=== PATIENT | male | born 1965 | race African-American/Black ===

== ENCOUNTER 2016-12-08 08:46 | Inpatient (IN) ==
[2016-12-08 09:09] LABS: Basophils % 0.9 % (0.0-0.8); Hematocrit 42.5 VOL% (42.0-52.0); Hemoglobin 14.3 GM/DL (14.0-18.0); Immature Granulocytes % 1.8 %; Immature Granulocytes Absolute 0.06 #; Lymphocytes # 1.3 10*3/uL (1.4-4.0); Lymphocytes % 36.9 % (21.2-54.2); Mean Corpuscular HGB Conc 33.6 GM/DL (32-36); Mean Corpuscular Hemoglobin 32 PG (27-34); Mean Corpuscular Volume 93.8 FL (87-102); Monocytes # 0.4 10*3/uL (0.11-0.8); Monocytes % 12.1 % (1.7-12.7); Neutrophils # 1.6 10*3/uL (1.4-7.4); Neutrophils % 48.3 % (38.7-73.9); Platelet Count 206 T/CUMM (130-400); Red Blood Count 4.53 MC/CUMM (3.8-5.5); Red Cell Distribution Width 13.5 % (9.3-17.3); White Blood Count 3.4 T/CUMM (4-12)
--- NOTE | 2016-12-08 09:28 | CT Report ---
CT head/brain wo con Indication: Altered LOC Comparison: None Technique: Multiple axial tomographic images of the brain were obtained without the use of intravenous contrast. Findings: Midline structures are nondisplaced. There is no acute intracranial hemorrhage or evidence of hydrocephalus. Mild global volume loss present. Minimal periventricular and subcortical hypoattenuation noted which is nonspecific but consistent with chronic microvascular ischemic change. Old appearing defect within the medial wall of the right orbit. Minimal opacification of posterior left ethmoid air cell. Paranasal sinuses and mastoid air cells are otherwise essentially clear. IMPRESSION: No acute intracranial abnormality demonstrated. PROCEDURE INTERPRETED AT [facility] DEPARTMENT OF RADIOLOGY Final Report Signed by: Dr Amol Lebron
[2016-12-08 09:38] LABS: Alanine Aminotransferase 85 U/L (16-61); Albumin 4.7 G/DL (3.4-5.0); Alkaline Phosphatase 83 U/L (45-117); Aspartate Amino Transferase 250 U/L (0-37); Blood Urea Nitrogen 8 MG/DL (7-18); Calcium 9.7 MG/DL (8.5-10.1); Glucose 126 MG/DL (74-106); Potassium 2.9 MMOL/L (3.5-5.1); Sodium 136 MMOL/L (136-145); Total Protein 8.9 G/DL (6.4-8.3)
[2016-12-08] MEDS ORDERED: SODIUM CHLORIDE 0.9% 500 ML IV STA (09:52)
[2016-12-08] MEDS ORDERED: POTASSIUM CHLORIDE 20 MEQ TABLET PO STA (09:55)
[2016-12-08] MEDS ORDERED: THIAMINE INJ 100 MG, FOLIC ACID INJ 1 MG, MAGNESIUM SULF INJ 2 GM, MULTIVITAMIN INJ 10 ... IV ONE (10:00)
[2016-12-08 10:11] LABS: Magnesium 1.9 MG/DL (1.8-2.4)
[2016-12-08] MEDS ORDERED: POTASSIUM CHLORIDE 20 MEQ TABLET PO ONE (10:11)
--- NOTE | 2016-12-08 10:22 | XRay Report ---
XR chest 1V portable Indication: Altered mental status Comparison: None Technique: Frontal views of the chest Findings: Heart size appears within normal limits. No focal consolidation, pleural effusion, or pneumothorax. Osseous and surrounding soft tissue structures demonstrate no acute abnormality. IMPRESSION: No acute cardiopulmonary process demonstrated. PROCEDURE INTERPRETED AT [facility] DEPARTMENT OF RADIOLOGY Final Report Signed by: Dr Amol Lebron
--- NOTE | 2016-12-08 10:23 | Emergency Department Note ---
Dalia Riley Brittany, am scribing for, and in the presence of, Amish Johnson MD 09:40. Elizabeth Riley Charles R, MD, personally performed the services described in this documentation, ascribed by Yelena Gómez in my presence, and it is both accurate and complete . 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 Patient confused at this time, but no left side weakness noted. Mode of Arrival: Stretcher Limitations: No Limitations Source: Patient - History of Present Illness HPI Narrative: This is a 51 y/o black male,who presents to the ED with c/o AMS secondary to a syncopal episode which started minutes [employer]. Per EMS, pt was at work when he fell over. His coworkers state pt become confused and was unable to move his left arm when they found him. Pt reports the left sided weakness has now resolved. He avtar any numbness to the face.Pt states he remembers going up a flight of stairs but he does not remember the syncopal episode. He denies dyspnea or CP. He states this is the first time these Sx have happened. He denies a Hx of seizures. Pt has no other complaints/pain in the ED at this time. Pt denies a PMHx. Pt denies a surgical Hx. Pt denies a family medical Hx. Pt is a frequent drinker and takes Ultram. 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 Absent: chest pain, dyspnea on exertion Neurological: Present: weakness (Left sided weakness, per pt this has now resolved), confusion Medical,Surgical,& Family Hx - Social History Smoking Status: Never smoker Frequency of Alcohol Use: Frequently Type of Drug Use: None Exam Vital Signs: Vital Signs Temperature 97.1 F L 12/08/16 10:51 Pulse Rate 82 12/08/16 11:30 Respiratory Rate 20 12/08/16 11:30 Blood Pressure 150/105 12/08/16 11:30 O2 Sat by Pulse Oximetry 98 12/08/16 11:30 - General General appearance: alert, in no apparent distress - Head Head exam: Present: atraumatic, normocephalic, normal inspection - Eye Eye exam: Present: normal appearance, PERRL, EOMI. Absent: nystagmus, miosis, mydriasis - ENT ENT exam: Present: normal exam, normal oropharynx, mucous membranes moist - Neck Neck exam: Present: normal inspection, full ROM, trachea midline. Absent: tenderness, lymphadenopathy, thyromegaly - Chest Chest inspection: Present: normal inspection, symmetric chest wall rise. Absent : tenderness, rash, abscess - Respiratory Respiratory exam: Present: normal lung sounds bilaterally. Absent: rales, respiratory distress, rhonchi, stridor, wheezes - Cardiovascular Cardiovascular exam: Present: regular rate, normal rhythm, normal heart sounds. Absent: murmur, rubs, gallop, clicks - Abdominal Exam Abdominal exam: Present: soft, normal bowel sounds. Absent: distention, tenderness, guarding, rebound, rigidity - Rectal Exam Rectal exam: Present: deferred - Extremities Exam Extremities exam: Present: normal inspection, full ROM, normal capillary refill. Absent: tenderness, pedal edema, joint swelling, calf tenderness - Back Exam Back exam: Present: normal inspection, full ROM. Absent: tenderness, muscle spasm, rashes - Neurological Exam Neurological exam: Present: alert, oriented X3, CN II-XII intact. Absent: motor sensory deficit - Psychiatric Psychiatric exam: Present: normal affect, normal mood. Absent: agitated, anxious - Skin Skin exam: Present: warm, dry, intact, normal color. Absent: rash, cyanosis, diaphoresis, erythema, pallor, mottled Results - Labs CBC & BMP: 12/08/16 08:57 12/08/16 08:57 Lab Results: I have reviewed the patients labs Labs: Laboratory Tests 12/08/16 12/08/16 08:57 08:57 WBC 3.4 L MPV 9.0 L Baso % (Auto) 0.9 H Lymph # (Auto) 1.3 L Potassium 2.9 L Chloride 93 L Anion Gap 23.9 H Glucose 126 H Calculated Osmolality 271.0 L Total Bilirubin 1.50 H AST 250 H ALT 85 H Total Protein 8.9 H Globulin 4.2 H Serum Alcohol < 15 L - Diagnostic Findings Procedure: Chest x-ray: report reviewed by me (Nothing acute. ), CT: report reviewed by me (Head CT: Nothing acute. ) Disposition Clinical Impression: Seizure-like activity, Post alcohol withdrawal, Medicine induce seizures, History of alcohol abuse, Hypokalemia Case discussed with: patient, patient's family Disposition: Disch To Home/Self Care Condition: Stable Instructions: Non-epileptic Seizures (ED), Epilepsy (ED), Abuse of Alcohol (ED) Additional Instructions: Recommend to stop drinking. Recommend follow-up outpatient EEG study with neurology. Return to ER for acute changes. Stop taking Ultram Follow-up primary care doctor to recheck potassium next Tuesday Prescriptions: Potassium Chloride Cap/Tab [K Dur] 20 meq PO DAILY #10 tablet Referrals: Abner Burch MD [Physician] - 24-48 Hrs if not improved (Call office for appointment) Time of Disposition: 12:09 Contact your physician if you experience:: fever over 101, Difficulty voiding, Redness or swelling, Nausea/Vomiting, Shortness of breath, Bleeding, pain uncontrolled by pain medications, Other Return to the Emergency Department if:: fever over 101, Difficulty voiding, Redness or swelling, Nausea/Vomiting, Shortness of breath, Bleeding, pain uncontrolled by pain medications, Other
[2016-12-08 11:32] LABS: Apearance,Urine Slightly Hazy (Clear); Bilirubin,Urine Negative (Negative); Blood, Urine Small mg/dL (Negative); Glucose,Urine (UA) Negative (Negative); Hyaline Casts,Urine 4 /LPF (0-3); Ketones,Urine 5 mg/dL (Negative); Mucus,Urine Few /LPF (Occasional); Nitrite,Urine Negative (Negative); Protein,Urine 100 MG/DL; RBC,Urine 1 /HPF (0-4); Squamous Epithelial Cell,Urine Occasional /HPF (0-10); Urine Color Yellow (Yellow); WBC,Urine 2 /HPF (0-6)
[2016-12-08 12:11] LABS: Barbiturates Screen,Urine Negative (Negative); Benzodiazepines Screen,Urine Negative (Negative); Cannabinoid Screen,Urine Negative (Negative); Opiate Screen,Urine Negative (Negative); Phencyclidine Screen,Urine Negative (Negative)
[2016-12-08] MEDS ORDERED: levETIRAcetam 500 MG/5 ML VIAL IV ONE (12:58)
--- NOTE | 2016-12-08 13:19 | CT Report ---
CT cervical spine wo con Indication: Fall. CT CERVICAL SPINE WITHOUT CONTRAST DLP: 260 mGy*cm. One or more of the following dose reduction techniques was used: Automated exposure control, adjustment of the mA and/or kV according the patient size, or use of iterative reconstruction techniques. Comparison: None Technique: Axial noncontrast CT images of the cervical spine were obtained. Coronal and sagittal reconstructions were provided. Findings: No acute cervical spine fracture or subluxation shown. Disc heights are maintained throughout. Facet joints are properly aligned without significant hypertrophic changes. No uncovertebral joint hypertrophy. No bony encroachment on the canal. No intervertebral foraminal stenosis. No paraspinous hematoma. Impression: No acute bony injury cervical spine. PROCEDURE INTERPRETED AT [facility] DEPARTMENT OF RADIOLOGY Final Report Signed by: Juventino Lofton M.D.
--- NOTE | 2016-12-08 13:20 | CT Report ---
CT head/brain wo con Indication: Fall Comparison: CT brain dated December 08, 2016 at 9:16 AM Technique: Multiple axial tomographic images of the brain were obtained without the use of intravenous contrast. Findings: Midline structures are nondisplaced. There is no acute intracranial hemorrhage or evidence of hydrocephalus. Mild global volume loss present. Minimal periventricular and subcortical hypoattenuation noted which is nonspecific but consistent with chronic microvascular ischemic change. Old defect within the medial wall of the right orbit. Minimal opacification of a posterior left ethmoid air cell. Paranasal sinuses and mastoid air cells are otherwise clear. IMPRESSION: No acute intracranial abnormality demonstrated. PROCEDURE INTERPRETED AT [facility] DEPARTMENT OF RADIOLOGY Final Report Signed by: Dr Amol Lebron
--- NOTE | 2016-12-08 13:25 | EKG Report ---
Stationary ECG Study [facility] ER Test Date: 12/08/2016 1:24:08 PM Pat Name: KARI RUIZ Department: Room: Gender: M Wound Care Rn: JAYLON : 1965 Requested by: Amish Koenig Order Number: [id number] Radha MD: DIPTI SOLIS Intervals [place] Rate: 100 P: 56 WI: 124 QRS: 52 QRSD: 73 T: 58 QT: 378 QTc: 435 Interpretive Statements SINUS TACHYCARDIA ABNORMAL RHYTHM ECG MINOR NON-SPECIFIC ST-T ABNORMALITIES Electronically Signed On 12-09-16 10:37:13 CDT by DIPTI SOLIS [email or web address]
[2016-12-08] MEDS ORDERED: LORazepam 2 MG/1 ML VIAL IV STA (13:30)
[2016-12-08] MEDS ORDERED: LORazepam 2 MG/1 ML VIAL ONE (13:33)
--- NOTE | 2016-12-08 14:15 | Hospitalist History & Physical ---
Assessment and Plan (1) Seizure-like activity Status: Acute Assessment and plan: Tramadol discontinued. Monitored bed. Seizure precautions. Neuro checks q2h. Consult neurology. Current Visit: Yes (2) Elevated liver enzymes Status: Acute Assessment and plan: Repeat liver function tests in a.m. Current Visit: Yes (3) History of alcohol abuse Status: Acute Assessment and plan: Consult certified social workers in health care. Seizure precautions. Monitor labs. Start on Po vitamin therapy. Current Visit: Yes (4) Hypokalemia Status: Acute Assessment and plan: IV fluids ordered. Recheck labs in a.m. Current Visit: Yes History of Present Illness Chief complaint: seizure like History of present illness: Mr. Hunter is a 51 yr old black male patient that was brought into the ER today via EMS after reportedly having falling and having seizure like activity at work. Pt. states he does not remember the episode at all and denies ever having seizure before. Pt also denies any medical, surgical, or family history. Pt does however admit to alcohol intake : "at least one pint of gin a night". Pt did state that he was seen on tuesday in a local ER where he was treated for right leg pain. Pt was prescribed Tramadol and Dicoflenac which he took. The patient received a complete workup in the ER with a CT of head showing no acute intracranial activity. Pt. received replacement of K which was 2.9, a banana bag , and IVF and was subsequently discharged. Upon discharge, pt was walking across to parking lot when he fell, hit his head, and chipped his front tooth. Pt also had another episode of seizure activity with emesis. Pt was brought back into the ED and reevaluated. Second CT showed no trauma. Pt is now oriented to person and place (not time). Pt denies headache, vision loss, ringing of ears, weakness, numbness or tingling. Pt denies fever, chills, fatigue. No complaints at this time. The patient will be admitted to the service for further workup. Home Medications Medication Instructions Recorded Confirmed Type Potassium Chloride Cap/Tab [K Dur] 20 meq PO DAILY #10 tablet 12/08/16 Rx Allergies Allergy/AdvReac Type Severity Reaction Status Date / Time No Known Allergies Allergy Verified 12/08/16 08:57 Medical,Surgical,& Family Hx - Social History Smoking Status: Never smoker Frequency of Alcohol Use: Frequently (at least a half of a pint of gin daily) Type of Drug Use: None Functional capacity: independent ambulation - Constitutional Constitutional: Absent: chills, fever(s) - EENT Eyes: Absent: loss of vision Ears: Absent: decreased hearing Nose, mouth and throat: Absent: headache(s) - Cardiovascular Cardiovascular: Absent: chest pain at rest, dyspnea, edema - Respiratory Respiratory: Absent: cough - Gastrointestinal Gastrointestinal: Absent: abdominal pain, nausea - Genitourinary Genitourinary: Absent: difficulty urinating - Neurological Neurological: Present: frequent falls ((since 12/08)). Absent: numbness Exam - Constitutional Vitals: Period Temp Pulse Resp BP Sys/Aj Pulse Ox Last 24 Hr 95 22 121/92 98 General appearance: normal weight, no acute distress - Head Head exam: Present: normal inspection, normocephalic, other - Eye Eye exam: Present: EOMI Pupils: Present: SINAN - Neck Neck exam: Present: other (pt in c-collar) - Respiratory Respiratory exam: Present: clear to auscultation bilaterally - Cardiovascular Cardiovascular exam: Present: tachycardia - GI/Abdominal GI/Abdominal exam: Present: normal bowel sounds, soft. Absent: tenderness - Extremities Exam Extremities exam: Present: normal capillary refill, full ROM - Neurological Exam Neurological exam: Present: alert, normal gait, altered (pt oriented to person and place. (not time)) - Psychiatric Psychiatric exam: Present: normal affect, normal mood - Skin Skin exam: Present: normal color, warm, dry, other (pt. had skin tears to hand from fall) Results - Labs CBC & BMP: 12/08/16 08:57 12/08/16 08:57 Lab Results: I have reviewed the past 24 hour labs Quality Measures - Stroke Onset of Symptoms Date: 12/08/16 Onset of Symptoms Time: 08:15 Symptom Onset Unknown: No
--- NOTE | 2016-12-08 14:52 | EKG Report ---
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
[2016-12-08] MEDS ORDERED: SODIUM CHLOR 0.9% KCL 40 MEQ 40 MEQ/1,000 ML BAG IV SCH (15:00)
[2016-12-08] MEDS: ACETAMINOPHEN 325 MG TABLET PO PRN (16:11)
[2016-12-08] MEDS ORDERED: LORazepam 2 MG/1 ML VIAL IM PRN (17:50)
[2016-12-08] MEDS: DOCUSATE SODIUM 100 MG CAPSULE PO SCH (21:36)
[2016-12-09 06:36] LABS: Basophils % 0.1 % (0.0-0.8); Eosinophils % 0.1 % (0.00-10.9); Hematocrit 36.4 VOL% (42.0-52.0); Hemoglobin 12.4 GM/DL (14.0-18.0); Immature Granulocytes % 0.4 %; Immature Granulocytes Absolute 0.05 #; Lymphocytes # 1.5 10*3/uL (1.4-4.0); Lymphocytes % 11.2 % (21.2-54.2); Mean Corpuscular HGB Conc 34.1 GM/DL (32-36); Mean Corpuscular Hemoglobin 32 PG (27-34); Mean Corpuscular Volume 92.9 FL (87-102); Mean Platelet Volume 9.9 FL (9.6-12.0); Monocytes # 0.8 10*3/uL (0.11-0.8); Monocytes % 5.6 % (1.7-12.7); Neutrophils # 11.1 10*3/uL (1.4-7.4); Neutrophils % 82.6 % (38.7-73.9); Platelet Count 190 T/CUMM (130-400); Red Blood Count 3.92 MC/CUMM (3.8-5.5); Red Cell Distribution Width 13.6 % (9.3-17.3); White Blood Count 13.4 T/CUMM (4-12)
[2016-12-09 06:46] LABS: INR 1.1; PT Patient Result 11.4 SECS; Partial Thromboplastin Time 27.3 SECS (0-40)
[2016-12-09 07:10] LABS: Albumin 3.7 G/DL (3.4-5.0); Albumin 3.8 G/DL (3.4-5.0); Bilirubin,Direct 0.4 MG/DL (0.0-0.20); Bilirubin,Indirect 1.8 MG/DL (0.0-1.0); Bilirubin,Total 1.9 MG/DL (0.2-1.0); Bilirubin,Total 2.2 MG/DL (0.2-1.0); Calcium 8.8 MG/DL (8.5-10.1); Osmolality,Calculated 272.5 MOS/KG (273-304); Potassium 3.9 MMOL/L (3.5-5.1); Total Protein 6.7 G/DL (6.4-8.3); Total Protein 6.9 G/DL (6.4-8.3)
[2016-12-09 07:11] LABS: Risk Ratio 1.66; VLDL CHOLESTEROL 23.4 MG/DL
[2016-12-09 07:20] LABS: Folate 6.8 NG/ML (5.4-24.0)
--- NOTE | 2016-12-09 07:37 | EKG Report ---
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
[2016-12-09] MEDS: MULTIVITAMIN (CENTRUM) TABLET PO SCH (08:59)
[2016-12-09] MEDS: FOLIC ACID 1 MG TABLET PO SCH (08:59)
[2016-12-09] MEDS: DOCUSATE SODIUM 100 MG CAPSULE PO SCH ×2 (08:59→19:59)
[2016-12-09] MEDS: THIAMINE 100 MG TABLET PO SCH (08:59)
--- NOTE | 2016-12-09 09:35 | Neurology Consult Note ---
History of Present Illness History of present illness: Mr. Hunter is a 51 yr old -[place] gentleman was brought into the ER yesterday via EMS after reportedly having falling and having seizure like activity at work. Pt. states he does not remember the episode at all and denies ever having seizure before. Pt also denies any medical, surgical, or family history. Pt does however admit to alcohol intake : "at least one pint of gin a night". Pt did state that he was seen on tuesday in a local ER where he was treated for right leg pain. Pt was prescribed Tramadol and Dicoflenac which he took. The patient received a complete workup in the ER with a CT of head showing no acute intracranial activity. Pt. received replacement of K which was 2.9, a banana bag, and IVF and was subsequently discharged. Upon discharge, pt was walking across to parking lot when he fell, hit his head, and chipped his front tooth. Pt also had another episode of seizure activity with emesis. Pt was brought back into the ED and reevaluated. Second CT showed no trauma. Pt is now oriented to person and place (not time). Patient reported that he has similar episode almost 2-3 years ago when he passed out. This time he did bite his tongue. Home Medications Medication Instructions Recorded Confirmed Type Diclofenac Potassium Tab [Cataflam] 50 mg PO TID 12/08/16 12/08/16 History Potassium Chloride Cap/Tab [K Dur] 20 meq PO DAILY 12/08/16 12/08/16 History methylPREDNISolone 4 mg PO DAILY 12/08/16 12/08/16 History [Methylprednisolone] Allergies Allergy/AdvReac Type Severity Reaction Status Date / Time No Known Allergies Allergy Verified 12/08/16 08:57 12 point system: reviewed and no additional remarkable complaints except as stated Medical,Surgical,& Family Hx - Medical History Neurology: History of: Cerebral Hemorrhage (10 years ago), Seizures Musculoskeletal: History of: Musculoskeletal Problems (arthritis) - Surgical History Neurologic Surgeries: Surgical HX of: Cerebral Hemorrhage (10 years ago) - Social History Smoking Status: Never smoker Frequency of Alcohol Use: Frequently (at least a half of a pint of gin daily) Type of Drug Use: None Exam - Constitutional Vitals: Period Temp Pulse Resp BP Sys/Aj Pulse Ox Last 24 Hr 98.9 F-101.2 F 78-95 18-22 95-135/73-93 96-100 Exam: GENERAL: Patient is in no acute distress. NECK: Neck is supple. There is no JVD. No carotid bruits present. No thyroid masses. CVS: First and second heart sounds are normal. There is no S3 present. Regular rate and rhythm. RESPIRATORY: Lungs are clear to auscultation without any rales or rhonchi. ABDOMEN: Soft and non-tender. Bowel sounds are present. There is no hepatosplenomegaly. EXT: There is no palpable edema. Peripheral pulses are present. Skin: No rashes Central Nervous system: General: Alert, awake and Oriented x 3 Speech: Fluent Comprehension: Intact and normal Facial expressions: Normal Cranial Nerves: CN1/Olfactory: Normal CN II/ Optic: Normal, Visual Sears unreliable CN III, and : SINAN & EOMI CN V: Normal & intact CN VII: face is symmetric CNVIII: Normal CN XI/X/XI/XII: Intact and Normal Motor: Bulk and Tone is normal. Strength in the right 5/5 Strength in the left 5/5 Sensory: Grossly intact for all the modalities of PP, LT and temp sense Reflexes: 1+ and symmetrical Cerebellar function: Normal finger to nose and heel to finn testing. Toes: Equivocal Gait: Normal heel to heel and toe to toe and tandem walk. Results - Labs CBC & BMP: 12/09/16 06:09 12/09/16 06:09 Assessment and Plan (1) Seizure disorder Status: Acute Assessment and plan: History a strong surgical seizures. This is probably his second or third episode. We will go ahead and start Keppra 500 mg p.o. twice daily. No driving, swimming or operating heavy machinery for 6-8 months Follow-up in 6 weeks Current Visit: Yes Specialty Discharge - Follow Up or Referrals Follow up with: Abner Burch MD [Physician] - 24-48 Hrs if not improved (Call office for appointment)
[2016-12-09] MEDS: levETIRAcetam 500 MG TABLET PO SCH ×2 (09:53→19:59)
--- NOTE | 2016-12-09 13:50 | Discharge Summary ---
Diagnosis - Discharge Diagnosis (1) Elevated liver enzymes Status: Acute (2) History of alcohol abuse Status: Acute (3) Seizure disorder Status: Acute Specialty Discharge - Follow Up or Referrals Follow up with: Abner Burch MD [Physician] - 24-48 Hrs if not improved (Call office for appointment) Discharge Plan - Discharge Medications No Action Potassium Chloride Cap/Tab [K Dur] 20 meq PO DAILY Diclofenac Potassium Tab [Cataflam] 50 mg PO TID methylPREDNISolone [Methylprednisolone] 4 mg PO DAILY - Follow Up or Referral Follow Up: Abner Burch MD [Physician] - 24-48 Hrs if not improved (Call office for appointment) - Forms/Instructions Forms: Work/School Release Instructions: Epilepsy (ED), Non-epileptic Seizures (ED), Abuse of Alcohol (ED) Exam - Constitutional Vitals: Period Temp Pulse Resp BP Sys/Aj Pulse Ox Last 24 Hr 98.9 F-101.2 F 78-96 18-20 95-139/73-96 95-100 Discharge Results Procedures and tests throughout hospitalization: Pending Orders 12/08/16 17:39 Blood Culture Stat Labs on day of discharge: Labs from last 24 hours 12/09/16 12/09/16 12/09/16 06:09 06:09 06:09 WBC 13.4 H D RBC 3.92 Hgb 12.4 L Hct 36.4 L MCV 92.9 MCH 32 MCHC 34.1 RDW 13.6 Plt Count 190 MPV 9.9 Neut % (Auto) 82.6 H Lymph % (Auto) 11.2 L [place] % (Auto) 5.6 Eos % (Auto) 0.1 Baso % (Auto) 0.1 Neut # (Auto) 11.1 H Lymph # (Auto) 1.5 [place] # (Auto) 0.8 Eos # (Auto) 0.0 Baso # (Auto) 0.0 Immature Gran % 0.4 Nucleated RBC % 0.0 Immature Gran # 0.05 Nucleated RBCs # 0.00 INR PT Patient/Control Mix Circ Anticoag PTT Sodium 139 Potassium 3.9 Chloride 103 Carbon Dioxide 24 Anion Gap 15.9 H BUN 8 Creatinine 0.80 GFR Calculation 123 BUN/Creatinine Ratio 10.00 Glucose 70 L Calculated Osmolality 272.5 L Calcium 8.8 Magnesium Total Bilirubin 2.20 H 1.90 H Direct Bilirubin 0.4 H Indirect Bilirubin 1.8 H AST 113 H 116 H ALT 55 56 Alkaline Phosphatase 64 65 Total Protein 6.7 6.9 Albumin 3.7 3.8 Globulin 3.1 Albumin/Globulin Ratio 1.2 Triglycerides 117 Cholesterol 222 H LDL Cholesterol 84.0 VLDL Cholesterol 23.4 HDL Cholesterol 134 H Heart Disease Risk Ratio 1.66 Vitamin B12 Folate 12/09/16 12/09/16 12/08/16 06:09 06:09 17:39 WBC RBC Hgb Hct MCV MCH MCHC RDW Plt Count MPV Neut % (Auto) Lymph % (Auto) [place] % (Auto) Eos % (Auto) Baso % (Auto) Neut # (Auto) Lymph # (Auto) [place] # (Auto) Eos # (Auto) Baso # (Auto) Immature Gran % Nucleated RBC % Immature Gran # Nucleated RBCs # INR 1.1 PT Patient/Control Mix 11.4 Circ Anticoag PTT 27.3 Sodium Potassium Chloride Carbon Dioxide Anion Gap BUN Creatinine GFR Calculation BUN/Creatinine Ratio Glucose Calculated Osmolality Calcium Magnesium 2.5 H Total Bilirubin Direct Bilirubin Indirect Bilirubin AST ALT Alkaline Phosphatase Total Protein Albumin Globulin Albumin/Globulin Ratio Triglycerides Cholesterol LDL Cholesterol VLDL Cholesterol HDL Cholesterol Heart Disease Risk Ratio Vitamin B12 545 Folate 6.8 DS: Provider Date of admission: 12/08/16 13:23 Primary care physician: . No PCP Attending physician on admission: Vladimir Cazares MD Consults: 12/08/16 14:25 Consult to Physician [CONS] Routine Comment: Consulting Provider: Abner Burch Person Notified: GILBERT 12/08/16 14:39 Consult to Pharmacy [CONS] Routine Reason for Pharmacy Consult: Adjust Meds Renal Funct 12/08/16 14:54 Consult to Dietitian [CONS] Routine Reason for Dietitian: Dietary Consult Consult to Pastoral Services [CONS] Routine Comment: Pastoral Screen: Request Wood Engraver Visit Pastoral Screen Source of Request: Patient Discharging clinician: Vladimir Cazares MD
--- NOTE | 2016-12-09 13:53 | Hospitalist Progress Note ---
Assessment and Plan (1) Seizure disorder Status: Acute Assessment and plan: Patient seen by neurology and on Keppra per recommendation Current Visit: Yes (2) Elevated liver enzymes Status: Acute Assessment and plan: Noted to have elevated AST which is better bilirubin is elevated and mild her eyes checked in level from yesterday ALT improved PROBABLY because of the alcohol liver disease but I will check a hepatitis panel and order liver/right upper quadrant ultrasound patient advised to quit alcohol Current Visit: Yes (3) History of alcohol abuse Status: Acute Assessment and plan: No withdrawal symptoms and says he has not drink alcohol for more than a week. Today he states that he had large drink or one weekend before he was seen in the emergency room Current Visit: Yes Hospitalist: Subjective Interval history: No seizure overnight patient was seen by Dr. Burch and plan to follow up in 6 weeks and continue Keppra 500 mg twice a day. He has advised no driving, swimming or operating heavy machinery for 6-8 months. without any nausea vomiting afebrile Exam - Constitutional Vitals: Period Temp Pulse Resp BP Sys/Aj Pulse Ox Last 24 Hr 98.9 F-101.2 F 78-96 18-20 95-139/73-96 95-100 General appearance: no acute distress - Respiratory Respiratory exam: Present: clear to auscultation bilaterally. Absent: rales, rhonchi - Cardiovascular Cardiovascular exam: Present: regular rate and rhythm. Absent: tachycardia - GI/Abdominal GI/Abdominal exam: Present: normal bowel sounds, soft. Absent: tenderness - Extremities Exam Extremities exam: Present: normal inspection. Absent: edema - Neurological Exam Neurological exam: Present: alert, oriented X3 Results - Labs CBC & BMP: 12/09/16 06:09 12/09/16 06:09 Lab Results: I have reviewed the past 24 hour labs Quality Measures - Stroke Onset of Symptoms Date: 12/08/16 Onset of Symptoms Time: 08:15 Symptom Onset Unknown: No Specialty Discharge - Follow Up or Referrals Follow up with: Abner Burch MD [Physician] - 24-48 Hrs if not improved (Call office for appointment)
[2016-12-09] MEDS: ACETAMINOPHEN 325 MG TABLET PO PRN (19:53)
[2016-12-10 03:37] LABS: Basophils % 0.2 % (0.0-0.8); Eosinophils % 0.2 % (0.00-10.9); Hematocrit 37.3 VOL% (42.0-52.0); Hemoglobin 12.7 GM/DL (14.0-18.0); Immature Granulocytes % 0.8 %; Immature Granulocytes Absolute 0.07 #; Lymphocytes # 1.7 10*3/uL (1.4-4.0); Mean Corpuscular Hemoglobin 32 PG (27-34); Mean Corpuscular Volume 92.8 FL (87-102); Mean Platelet Volume 9.8 FL (9.6-12.0); Monocytes # 0.8 10*3/uL (0.11-0.8); Monocytes % 9.4 % (1.7-12.7); Neutrophils # 6.1 10*3/uL (1.4-7.4); Neutrophils % 70.4 % (38.7-73.9); Platelet Count 162 T/CUMM (130-400); Red Blood Count 4.02 MC/CUMM (3.8-5.5); Red Cell Distribution Width 13.1 % (9.3-17.3); White Blood Count 8.7 T/CUMM (4-12)
[2016-12-10 04:14] LABS: Albumin 3.6 G/DL (3.4-5.0); Bilirubin,Direct 0.4 MG/DL (0.0-0.20); Bilirubin,Indirect 1.5 MG/DL (0.0-1.0); Bilirubin,Total 1.9 MG/DL (0.2-1.0); Osmolality,Calculated 269.8 MOS/KG (273-304); Potassium 3.5 MMOL/L (3.5-5.1); Total Protein 6.8 G/DL (6.4-8.3)
[2016-12-10 05:52] LABS: Hepatitis A Ab IgM Quant 0.14 Index; Hepatitis A Ab IgM Result Negative (Negative); Hepatitis B Surface Ag Quant 0.24 Index; Hepatitis B Surface Ag Result Negative (Negative); Hepatitis C Virus Ab Quant 0.26 Index; Hepatitis C Virus Ab Result Negative (Negative)
[2016-12-10 07:31] LABS: Hepatitis B Core IgM Quant 1.37 Index; Hepatitis B Core IgM Result Positive (Negative)
--- NOTE | 2016-12-10 08:35 | Ultrasound Report ---
US liver Indication: Abnormal liver enzymes. ULTRASOUND ABDOMEN, limited Comparison: CT 10/21/2008 Findings: Grayscale and color Doppler imaging of the upper abdomen performed. Liver: Diffusely and heterogeneously echogenic throughout. Normal size and smooth contour. No focal mass. Gallbladder: No stones, sludge, gallbladder wall thickening, pericholecystic fluid or sonographic Andrade sign. Common bile duct: 4 mm Pancreas: Unremarkable Right kidney: 10.9 cm length. No mass, cyst, calcification or obstruction Impression: 1. Diffuse echogenicity of the liver consistent with either fatty infiltration, inflammation such as hepatitis or cirrhosis. No focal lesion shown. Normal sized. PROCEDURE INTERPRETED AT [facility] DEPARTMENT OF RADIOLOGY Final Report Signed by: Juventino Lofton M.D.
[2016-12-10] MEDS: THIAMINE 100 MG TABLET PO SCH (09:02)
[2016-12-10] MEDS: MULTIVITAMIN (CENTRUM) TABLET PO SCH (09:06)
[2016-12-10] MEDS: DOCUSATE SODIUM 100 MG CAPSULE PO SCH (09:06)
[2016-12-10] MEDS: levETIRAcetam 500 MG TABLET PO SCH (09:06)
[2016-12-10] MEDS: FOLIC ACID 1 MG TABLET PO SCH (09:06)
[2016-12-10] MEDS: ACETAMINOPHEN 325 MG TABLET PO PRN (10:53)
--- NOTE | 2016-12-10 11:21 | Gastrointestinal Consult Note ---
<EvyblaiseBrigitte Dennise - Last Filed: 12/10/16 11:03> Assessment and Plan (1) Elevated liver enzymes Status: Acute Assessment and plan: 12/10-findings of elevated liver enzymes following seizure-like activity on admission. Hepatitis panel noted to be positive for hepatitis B core antibodies. Liver ultrasound results noted. No known prior history of liver disease. Long-term history of alcohol use. Plan an addendum to follow by Dr. Ellison. History of Present Illness Chief complaint: Elevated LFT, postive Hep B ab History of present illness: Mr. Hunter is a 51 year old male who presented to the hospital with onset of seizure like activity. Pt is reported to have come to the ER following a fall at work. He had no recollection of the fall or the events that proceeded this. He states that recently he has had 2 or 3 falls similar to this and reports a seizure-like activity that followed with one episode including emesis. Patient has had a couple of head CTs following these events with no acute intracranial activity seen on the scans. He states that he has a history of long-term alcohol use with minimum of a pint of gin a day upwards to 1/5 a day on the weekends. He states he has done this for greater than 10 years which started sometime after he was released from [facility] in 2001. Patient states that he has over the last several months had weight loss due to his drinking habits and just not eating. Denies any nausea, vomiting, abdominal pain, fever, or chills. He does bring forth that he has had night sweats several times a week for the last several months. Denies any melena or hematochezia. Reports taking tramadol and Cataflam for right leg pain recently. He states his last drink was this past Tuesday. Denies any signs of DTs at present time. States he has never had DTs or withdrawal seizures in the past. Denies a history of seizure activity prior to this episode and states he has only had some syncope in the past which he was followed by Dr. Card years ago for. He was found on admission to have elevated LFTs. He had a hepatitis panel done and noted to be positive for hepatitis B core antibodies. He denies any other high risk behaviors including IV drug use or multiple sexual partners. States he has never been told in the past that he had elevated liver enzymes and he did have routine lab work done fairly recently through Dr. Medrano per patient. Liver ultrasound was done this morning and noted to have diffuse echogenicity consistent with fatty infiltration or inflammation such as hepatitis or cirrhosis. No other acute findings noted. Home Medications Medication Instructions Recorded Confirmed Type Potassium Chloride Cap/Tab [K Dur] 20 meq PO DAILY 12/08/16 12/08/16 History Folic Acid Tab 1 mg PO DAILY tablet 12/10/16 Rx Multivitamin (Centrum) [Centrum 1 tablet PO DAILY tablet 12/10/16 Rx Tab] Thiamine Tab [Vitamin B1 Tab] 100 mg PO DAILY tablet 12/10/16 Rx levETIRAcetam TAB [Keppra Tab] 500 mg PO BID #60 tablet 12/10/16 Rx Allergies Allergy/AdvReac Type Severity Reaction Status Date / Time No Known Allergies Allergy Verified 12/08/16 08:57 Medical,Surgical,& Family Hx - Medical History Neurology: History of: Cerebral Hemorrhage (10 years ago), Seizures Musculoskeletal: History of: Musculoskeletal Problems (arthritis) - Surgical History Neurologic Surgeries: Surgical HX of: Cerebral Hemorrhage (10 years ago) - Social History Smoking Status: Never smoker Frequency of Alcohol Use: Frequently (at least a half of a pint of gin daily) Type of Drug Use: None 12 point system: reviewed and no additional remarkable complaints except as stated - Constitutional Constitutional: Present: as per HPI, frequent falls, weight loss - EENT Eyes: Present: as per HPI Ears: Present: as per HPI Nose, mouth and throat: Present: as per HPI - Cardiovascular Cardiovascular: Present: as per HPI - Respiratory Respiratory: Present: as per HPI - Gastrointestinal Gastrointestinal: Present: as per HPI - Genitourinary Genitourinary: Present: as per HPI - Musculoskeletal Musculoskeletal: Present: as per HPI - Neurological Neurological: Present: as per HPI - Psychiatric Psychiatric: Present: as per HPI - Endocrine Endocrine: Present: as per HPI - Hematologic/Lymphatic Hematologic/Lymphatic: Present: as per HPI Exam - Constitutional Vitals: Period Temp Pulse Resp BP Sys/Aj Pulse Ox Last 24 Hr 97.9 F-101.6 F 96-112 17-28 120-154/68-97 95-100 General appearance: normal weight, no acute distress - Head Head exam: Present: normal inspection, normocephalic - Eye Eye exam: Present: other (Lids and conjunctivae unremarkable). Absent: scleral icterus - ENT ENT exam: Present: normal exam, normal oropharynx - Neck Neck exam: Present: normal inspection - Respiratory Respiratory exam: Present: clear to auscultation bilaterally. Absent: rales, rhonchi, wheezes - Cardiovascular Cardiovascular exam: Present: regular rate and rhythm. Absent: diastolic murmur , JVD, systolic murmur - GI/Abdominal GI/Abdominal exam: Present: normal bowel sounds, soft. Absent: ascites, distended, mass, organomegaly, tenderness - Extremities Exam Extremities exam: Present: normal inspection, full ROM - Back Exam Back exam: Present: normal inspection - Neurological Exam Neurological exam: Present: alert, oriented X3 - Psychiatric Psychiatric exam: Present: normal affect, normal mood - Skin Skin exam: Present: normal color, warm, dry Results - Labs CBC & BMP: 12/10/16 03:17 12/10/16 03:17 Lab Results: I have reviewed the past 24 hour labs - Diagnostic Findings Procedure: Ultrasound: report reviewed by me Quality Measures - Stroke Onset of Symptoms Date: 12/08/16 Onset of Symptoms Time: 08:15 Symptom Onset Unknown: No Specialty Discharge - Follow Up or Referrals Follow up with: Abner Burch MD [Physician] - 24-48 Hrs if not improved (Call office for appointment) <Owen Ellison - Last Filed: 12/10/16 16:47> History of Present Illness History of present illness: Mr. Hunter is a 51 year old male Exam - Constitutional Vitals: Period Temp Pulse Resp BP Sys/Aj Pulse Ox Last 24 Hr 97.9 F-101.6 F 100-118 17-28 120-141/68-98 95-96 Results - Labs CBC & BMP: 12/10/16 03:17 12/10/16 03:17
--- NOTE | 2016-12-10 11:46 | Discharge Summary ---
<Hailey Ennis - Last Filed: 12/10/16 15:46> Hospital Course - Hospital Course Hospital Course: Mr. Hunter is a 51 yr old black male patient that was brought into the ER on 12/08 via EMS after reportedly having falling and having seizure like activity at work. Pt. states he does not remember the episode at all and denies ever having seizure before. Pt also denies any medical, surgical, or family history. Pt does however admit to alcohol intake : "at least one pint of gin a night". Pt did state that he was seen Tuesday in a local ER where he was treated for right leg pain. Pt was prescribed Tramadol and Dicoflenac which he took. The patient received a complete workup in the ER with a CT of head showing no acute intracranial activity. Pt. was subsequently discharged. Upon discharge, pt was walking across to parking lot when he fell, hit his head, and chipped his front tooth. Pt also had another episode of seizure activity with emesis. Pt was brought back into the ED and reevaluated. The patient was then hospitalized. Repeat CT was negative. Liver enzymes elevated secondary to alcohol abuse. Neurology was consulted to evaluate the patient. Pt. was started on Keppra 500 mg po twice daily. Pt. is not to drive, swim or operate heavy machinery in 6-8 months. Follow up in 6 weeks. Pt stable for discharge Diagnosis - Discharge Diagnosis (1) Seizure-like activity Status: Acute (2) Elevated liver enzymes Status: Acute (3) History of alcohol abuse Status: Acute (4) Hypokalemia Status: Acute Specialty Discharge - Follow Up or Referrals Follow up with: Abner Burch MD [Physician] - 24-48 Hrs if not improved (Call office for appointment) Discharge Plan - Discharge Data Disposition: Disch To Home/Self Care - Discharge Medications New Multivitamin (Centrum) [Centrum Tab] 1 tablet PO DAILY tablet Thiamine Tab [Vitamin B1 Tab] 100 mg PO DAILY tablet levETIRAcetam TAB [Keppra Tab] 500 mg PO BID #60 tablet Folic Acid Tab 1 mg PO DAILY tablet Continue Potassium Chloride Cap/Tab [K Dur] 20 meq PO DAILY Discontinued Diclofenac Potassium Tab [Cataflam] 50 mg PO TID methylPREDNISolone [Methylprednisolone] 4 mg PO DAILY - Follow Up or Referral Follow Up: Abner Burch MD [Physician] - 24-48 Hrs if not improved (Call office for appointment) - Forms/Instructions Forms: Work/School Release Instructions: Epilepsy (ED), Non-epileptic Seizures (ED), Abuse of Alcohol (ED) Exam - Constitutional Vitals: Period Temp Pulse Resp BP Sys/Aj Pulse Ox Last 24 Hr 97.9 F-101.6 F 100-118 17-28 120-154/68-98 95-100 Discharge Results Procedures and tests throughout hospitalization: Pending Orders 12/08/16 17:39 Blood Culture Stat Labs on day of discharge: Labs from last 24 hours 12/10/16 12/10/16 12/10/16 12:23 03:17 03:17 WBC RBC Hgb Hct MCV MCH MCHC RDW Plt Count MPV Neut % (Auto) Lymph % (Auto) [place] % (Auto) Eos % (Auto) Baso % (Auto) Neut # (Auto) Lymph # (Auto) [place] # (Auto) Eos # (Auto) Baso # (Auto) Immature Gran % Nucleated RBC % Immature Gran # Nucleated RBCs # Sodium 137 Potassium 3.5 Chloride 102 Carbon Dioxide 26 Anion Gap 12.5 BUN 6 L Creatinine 0.80 GFR Calculation 123 BUN/Creatinine Ratio 7.00 Glucose 87 Calculated Osmolality 269.8 L Calcium 9.0 Total Bilirubin 1.90 H Direct Bilirubin 0.4 H Indirect Bilirubin 1.5 H AST 90 H ALT 46 Alkaline Phosphatase 71 Total Protein 6.8 Albumin 3.6 Hepatitis A IgM Ab Negative Hep Bs Antigen Negative Hep Bs Antibody Positive Hep B Core IgM Ab Positive A Hepatitis C Antibody Negative 12/10/16 03:17 WBC 8.7 D RBC 4.02 Hgb 12.7 L Hct 37.3 L MCV 92.8 MCH 32 MCHC 34.0 RDW 13.1 Plt Count 162 MPV 9.8 Neut % (Auto) 70.4 Lymph % (Auto) 19.0 L [place] % (Auto) 9.4 Eos % (Auto) 0.2 Baso % (Auto) 0.2 Neut # (Auto) 6.1 Lymph # (Auto) 1.7 [place] # (Auto) 0.8 Eos # (Auto) 0.0 Baso # (Auto) 0.0 Immature Gran % 0.8 Nucleated RBC % 0.0 Immature Gran # 0.07 Nucleated RBCs # 0.00 Sodium Potassium Chloride Carbon Dioxide Anion Gap BUN Creatinine GFR Calculation BUN/Creatinine Ratio Glucose Calculated Osmolality Calcium Total Bilirubin Direct Bilirubin Indirect Bilirubin AST ALT Alkaline Phosphatase Total Protein Albumin Hepatitis A IgM Ab Hep Bs Antigen Hep Bs Antibody Hep B Core IgM Ab Hepatitis C Antibody Preliminary micro results at discharge 12/08/16 17:39 Blood Culture - Preliminary Blood No growth at 1 day 12/08/16 17:39 Blood Culture - Preliminary Blood No growth at 1 day DS: Provider Date of admission: 12/08/16 13:23 Primary care physician: . Leonela PCP Attending physician on admission: Vladimir Cazares MD Consults: 12/08/16 14:25 Consult to Physician [CONS] Routine Comment: Consulting Provider: Abner Burch Person Notified: GILBERT 12/08/16 14:39 Consult to Pharmacy [CONS] Routine Reason for Pharmacy Consult: Adjust Meds Renal Funct 12/08/16 14:54 Consult to Dietitian [CONS] Routine Reason for Dietitian: Dietary Consult Consult to Pastoral Services [CONS] Routine Comment: Pastoral Screen: Request Office Auditor Visit Pastoral Screen Source of Request: Patient 12/10/16 08:48 Consult to Physician [CONS] Routine Comment: hepatitis/cirrhosis positive hep b core ab Consulting Provider: Owen Ellison Consult to Specialist Group: Gastroenterology When should Consulting Provider be notified: Now Person Notified: FREDERICK Date Notified: 12/10/16 Time Notified: 09:14 Discharging clinician: Hailey Ennis NP <Vladimir Cazares - Last Filed: 12/10/16 17:44> Hospital Course - Hospital Course Hospital Course: Patient had abnormal liver function test noted fatty liver likely due to alcohol use seen by the GI. Hepatitis Anthony G is negative for hepatitis surface antigen but positive for IgM core antibodies.. Surface of the body was requested by GI and plan to have a follow-up with regular physician. Patient was counseled about alcohol cessation. He had a x-ray of right mandible and did not report any bony abnormalities. Patient is discharged to follow with the primary care physician and as mentioned not to drive swim or operate heavy machinery for 6-8 months and follow-up with the neurology also Diagnosis - Discharge Diagnosis (1) Seizure disorder Status: Acute (2) Elevated liver enzymes Status: Acute (3) History of alcohol abuse Status: Acute (4) Liver disease, alcoholic Status: Chronic Discharge Plan - Discharge Data Condition at Discharge: Stable Activity: resume usual activities as tolerated, other (No swimming driving or operating heavy machinery) Exam - Constitutional General appearance: no acute distress - Respiratory Respiratory exam: Present: clear to auscultation bilaterally, rales, rhonchi - Cardiovascular Cardiovascular exam: Present: regular rate and rhythm. Absent: tachycardia - GI/Abdominal GI/Abdominal exam: Present: normal bowel sounds, soft. Absent: distended, tenderness - Extremities Exam Extremities exam: Present: normal inspection, edema - Neurological Exam Neurological exam: Present: alert, oriented X3
--- NOTE | 2016-12-10 12:41 | Physician Query Form ---
CLICK EDIT DOCUMENT TO SELECT QUERY ANSWER --> OK --> SIGN Marily Smalls RN, CCDS Certified Clinical [employer] Closer W) [phone] (f) [phone] [email or web address] PROVIDERS: Make your selection(s) from the choices in EACH section by typing an "x" and enter comments in the comment section. Please use your independent medical judgment in providing your response. This request does not imply that any particular answer is desired or expected. CLINICAL INDICATORS: (Providers should not edit this section) Height: BMI 17.2, Ht. 6'1' Wt. 130lb Weight: BMI 17.2, Ht. 6'1' Wt. 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 6'1' Wt. 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 6'1' Wt. 130lb, Underweight and per dietary "Patient underweight as ETOH replacing intake of solids". Based on the above, which following choice most accurately represents the patient's nutritional status? ( ) Malnutrition ( ) mild ( ) moderate ( ) severe ( x) Protein calorie malnutrition ( ) mild ( x) moderate ( ) severe ( ) Emaciation due to malnutrition ( ) Nutritional marasmus ( ) Cachexia ( ) Underweight ( ) No nutritional deficiency (x ) Other, please specify: Alcohol induced malnutrition ( ) Clinically unable to determine Mild Malnutrition (BMI < 18.5, % Normal Body Weight 85-95%) Moderate Malnutrition (BMI < 17, % Normal Body Weight 75-85%) Severe Malnutrition (BMI < 16, % Normal Body Weight < 75%) Source: [place]ia COMMENTS: Use of terms such as suspected, likely, or probable (associated with a specific diagnosis that is being evaluated, monitored, or treated as if it exists) are acceptable and can be restated in the discharge summary if not ruled out. MTDD
[2016-12-10 12:47] VITALS: BP 134/98
[2016-12-10 12:56] LABS: Hepatitis B Surface Ab Result Positive
--- NOTE | 2016-12-10 12:59 | XRay Report ---
XR mandible complete Indication: Fall. Facial swelling. Mandible 7 views: No fracture identified. Temporomandibular joints are properly aligned. Soft tissues about the jaw are within normal limits as well. Unerupted molars are present posteriorly. Impression: No acute mandible injury. PROCEDURE INTERPRETED AT [facility] DEPARTMENT OF RADIOLOGY Final Report Signed by: Juventino Lofton M.D.
== END 2016-12-10 15:10 | disposition home or self-care (01) | DRG 101 ==
LOC: EDUNIT# → EDBD → N.ED 08:46 → N.EDINP 13:23 → N.2E 14:35
PROVIDERS: ADMIT Internal Medicine; ATTEND Internal Medicine